=== PATIENT | female | born 1970 | race Caucasian/White ===

== ENCOUNTER 2021-10-12 11:27 | Outpatient (CLI) | payer BC | END 2021-10-12 11:28 | disposition home or self-care (01) | LOC: CSHMAMMO 11:27 | PROVIDERS: ATTEND Student in an Organized Health Care Education/Training Program | DX: Z12.31 Encounter for screening mammogram for malignant neoplasm of breast (principal); Z80.3 Family history of malignant neoplasm of breast | CPT/HCPCS: 77063; 77067 ==

== ENCOUNTER 2022-12-14 08:35 | Outpatient (CLI) | payer BC | END 2022-12-14 08:36 | disposition home or self-care (01) | LOC: CSHMAMMO 08:35 | PROVIDERS: ATTEND Family Medicine Sports Medicine | DX: Z12.31 Encounter for screening mammogram for malignant neoplasm of breast (principal); Z80.3 Family history of malignant neoplasm of breast | CPT/HCPCS: 77063; 77067 ==

== ENCOUNTER 2023-03-01 08:13 | Outpatient (CLI) | payer BC ==
[2023-03-01] MEDS ORDERED: Iopamidol 300 61% 100 ML VIAL FS ONE (15:07)
== END 2023-03-01 08:14 | disposition home or self-care (01) ==
LOC: CSHCT 08:13
PROVIDERS: ATTEND Internal Medicine Gastroenterology
DX: K63.9 Disease of intestine, unspecified (principal)
CPT/HCPCS: 74177; Q9967

== ENCOUNTER 2023-11-06 08:30 | Outpatient (CLI) | payer BC | END 2023-11-06 08:31 | disposition home or self-care (01) | LOC: CSHMRI 08:30 | PROVIDERS: ATTEND Family Medicine Sports Medicine | DX: S89.92XA Unspecified injury of left lower leg, initial encounter (principal); M94.8X6 Other specified disorders of cartilage, lower leg; M23.8X2 Other internal derangements of left knee ==

== ENCOUNTER 2025-09-10 18:51 | Emergency (ER) | payer BC | END 2025-09-10 20:48 | disposition home or self-care (01) | LOC: CSHERS 18:51 | DX: S86.812A Strain of other muscle(s) and tendon(s) at lower leg level, left leg, initial encounter (principal); X50.3XXA Overexertion from repetitive movements, initial encounter ==